=== PATIENT | female | born 1975 | race Caucasian/White ===

== ENCOUNTER 2016-11-27 19:21 | Emergency (ER) | payer OTHER ==
[~2016-11-27] VITALS: Ht 162.6 cm; Wt 76.7 kg
[~2016-11-27 19:21] MED LIST: IBUPROFEN 800800 MG PO; MACROBID 100 M100 M1 PO; NORCO 5-325 TA1 EACH PO; NORFLEX100 MG PO; TRAMADOL 50 MG50 MG PO
[2016-11-27 19:22] VITALS: BP 154/98
[2016-11-27] MEDS ORDERED: NORCO 5-325 TA1 EACH PO (19:50)
[2016-11-27] MEDS ORDERED: IBUPROFEN 600600 M1 PO (19:50)
[2016-11-27] MEDS ORDERED: FLEXERIL PO (19:50)
== END 2016-11-27 20:00 | disposition home or self-care (01) ==
LOC: ER 19:21
DX: S00.03XA Contusion of scalp, initial encounter (principal); S10.93XA Contusion of unspecified part of neck, initial encounter; S00.83XA Contusion of other part of head, initial encounter; Z88.6 Allergy status to analgesic agent; Y04.2XXA Assault by strike against or bumped into by another person, initial encounter; Y93.89 Activity, other specified; Y92.89 Other specified places as the place of occurrence of the external cause; Y99.9 Unspecified external cause status

== ENCOUNTER 2018-06-14 10:14 | Emergency (ER) | payer OTHER ==
[~2018-06-14] VITALS: Ht 162.6 cm; Wt 73.5 kg
[~2018-06-14 10:14] MED LIST changes: +FLEXERIL PO; +IBUPROFEN 600600 M1 PO
[2018-06-14 10:31] LABS: URINE BILIRUBIN NEGATIVE (Negative); URINE BLOOD 3+ (Negative); URINE CLARITY CLOUDY; URINE COLOR RED; URINE GLUCOSE-RANDOM* NEGATIVE (Negative); URINE KETONES TRACE (Negative); URINE PROTEIN (DIPSTICK) 3+ (Negative); URINE SPECIFIC GRAVITY 1.025 (1.005-1.035)
[2018-06-14 10:35] LABS: URINE LEUKOCYTES-REFLEX 1+ (Negative); URINE NITRITE-REFLEX POSITIVE (Negative)
[2018-06-14 10:38] LABS: BACTERIA-REFLEX 1-9 Few /HPF (None Seen); CASTS None Seen /LPF (None Seen); CRYSTALS None Seen /LPF (None Seen); SQUAMOUS 0-3 Few /LPF (0-3); URINE RBC >20 Many /HPF (0-2); URINE WBC-REFLEX 0-5 Rare /HPF (0-5)
[2018-06-14] MEDS ORDERED: XANAX 0.5 MG0.5 MG PO (10:40)
[2018-06-14] MEDS ORDERED: BUSPIRONE HCL10 MG PO (10:40)
[2018-06-14] MEDS ORDERED: CELEXA40 MG PO (10:41)
[2018-06-14 10:55] LABS: HEMATOCRIT 23.4 % (37.0-47.0); HEMOGLOBIN 6.8 gm/dL (12.0-15.0); MCH 16.1 pg (26.0-34.0); MCHC 29.1 g/dL (28.0-37.0); MCV 55.5 fL (80.0-100.0); RBC 4.22 mil/uL (4.20-5.00); RDW 20.6 % (10.5-14.5); WBC 7.8 thou/uL (4.0-11.0)
[2018-06-14 11:08] LABS: APTT 22.5 Seconds (24.5-32.8); CREATININE 0.7 mg/dL (0.6-1.0); POTASSIUM 3.7 mmol/L (3.5-5.1); PROTIME 10.3 Seconds (9.3-11.4)
[2018-06-14 11:13] LABS: ALBUMIN 3.9 g/dL (3.4-5.0); TOTAL BILIRUBIN 0.5 mg/dL (<0.1-1.0); TOTAL PROTEIN 8.2 g/dL (6.4-8.2)
[2018-06-14 11:44] LABS: URINE BILIRUBIN NEGATIVE (Negative); URINE BLOOD 1+ (Negative); URINE CLARITY CLEAR; URINE COLOR YELLOW; URINE GLUCOSE-RANDOM* NEGATIVE (Negative); URINE KETONES NEGATIVE (Negative); URINE LEUKOCYTES-REFLEX NEGATIVE (Negative); URINE NITRITE-REFLEX NEGATIVE (Negative); URINE PROTEIN (DIPSTICK) NEGATIVE (Negative); URINE SPECIFIC GRAVITY <= 1.005 (1.005-1.035); URINE UROBILINOGEN 0.2 E.U./dl (0.2-1.0)
[2018-06-14 11:49] LABS: ABSOLUTE NEUTROPHILS 4.7 thou/uL (1.4-8.2); ANISOCYTOSIS 2+
[2018-06-14 11:51] LABS: HYPOCHROMASIA 3+; MICROCYTES 3+; POLYCHROMASIA SLIGHT
[2018-06-14 11:52] LABS: PLATELET COUNT 821 thou/uL (150-400)
[2018-06-14 12:12] LABS: BACTERIA-REFLEX 1-9 Few /HPF (None Seen); CASTS None Seen /LPF (None Seen); CRYSTALS None Seen /LPF (None Seen); SQUAMOUS 0-3 Few /LPF (0-3); URINE RBC None Seen /HPF (0-2); URINE WBC-REFLEX 0-5 Rare /HPF (0-5)
[2018-06-14 12:50] VITALS: BP 150/84
[2018-06-14 12:50] LABS: % SATURATION 2 % (20-39); IRON 9 ug/dL (50-170); TIBC 574 ug/dL (250-450)
== END 2018-06-14 14:20 | disposition short-term general hospital (02) ==
LOC: ER 10:14
PROVIDERS: Physician Assistant
DX: D64.89 Other specified anemias (principal); N93.9 Abnormal uterine and vaginal bleeding, unspecified; Z88.8 Allergy status to other drugs, medicaments and biological substances

== ENCOUNTER 2020-06-07 22:15 | Emergency (ER) | payer OTHER ==
[~2020-06-07] VITALS: Ht 162.6 cm; Wt 72.6 kg
[~2020-06-07 22:15] MED LIST changes: +BUSPIRONE HCL10 MG PO; +CELEXA40 MG PO; +XANAX 0.5 MG0.5 MG PO
[2020-06-07] MEDS ORDERED: XANAX1 MG PO (22:35)
[2020-06-07] MEDS ORDERED: PRINIVIL20 M1 PO (22:36)
[2020-06-07] MEDS ORDERED: PROGESTERONE PO (22:36)
[2020-06-07] MEDS ORDERED: METFORMIN PO (22:36)
[2020-06-07 23:58] LABS: URINE BILIRUBIN NEGATIVE (Negative); URINE BLOOD NEGATIVE (Negative); URINE CLARITY CLEAR; URINE COLOR YELLOW; URINE GLUCOSE-RANDOM* NEGATIVE (Negative); URINE KETONES NEGATIVE (Negative); URINE LEUKOCYTES-REFLEX NEGATIVE (Negative); URINE NITRITE-REFLEX NEGATIVE (Negative); URINE PROTEIN (DIPSTICK) NEGATIVE (Negative); URINE UROBILINOGEN 0.2 E.U./dl (0.2-1.0)
[2020-06-08 00:29] LABS: ABSOLUTE NEUTROPHILS 5.4 thou/uL (1.4-8.2); BASOPHILS 0.6 % (0.0-2.0); EOSINOPHILS 1.6 % (0.0-3.0); HEMATOCRIT 39.2 % (37.0-47.0); HEMOGLOBIN 13.5 gm/dL (12.0-15.0); LYMPHOCYTES 29.2 % (24.0-44.0); MCH 31.5 pg (26.0-34.0); MCHC 34.4 g/dL (28.0-37.0); MCV 91.7 fL (80.0-100.0); MONOCYTES 6.4 % (1.0-8.0); PLATELET COUNT 322 thou/uL (150-400); POLYS 62.2 % (36.0-66.0); RBC 4.27 mil/uL (4.20-5.00); RDW 14.1 % (10.5-14.5); WBC 8.6 thou/uL (4.0-11.0)
[2020-06-08 00:36] LABS: CALCIUM 8.9 mg/dL (8.5-10.1); CREATININE 0.8 mg/dL (0.6-1.0); POTASSIUM 3.1 mmol/L (3.5-5.1)
[2020-06-08 00:42] LABS: ALBUMIN 3.7 g/dL (3.4-5.0); DIRECT BILIRUBIN 0.2 mg/dL (<0.1-0.2); TOTAL BILIRUBIN 0.9 mg/dL (0.2-1.0); TOTAL PROTEIN 7.4 g/dL (6.4-8.2)
[2020-06-08 04:00] VITALS: BP 159/83
== END 2020-06-08 04:00 | disposition home or self-care (01) ==
LOC: ER 22:15
PROVIDERS: Emergency Medicine
DX: K63.89 Other specified diseases of intestine (principal); E11.9 Type 2 diabetes mellitus without complications; I10 Essential (primary) hypertension; Z79.899 Other long term (current) drug therapy; Z88.8 Allergy status to other drugs, medicaments and biological substances